=== PATIENT | female | born 1960 | race Hispanic/Latino ===

== ENCOUNTER → 2024-05-14 | Day surgery (SDC) | payer OTHER ==
[2024-05-12 14:05] LABS: HEMATOCRIT 41.2 % (34.2-44.1); HEMOGLOBIN 12.9 g/dL (12.0-16.0)
[2024-05-12 14:32] LABS: ANION GAP 11.7 mmol/L (8-16); CALCIUM 9.7 mg/dL (8.4-10.2); CREATININE, SERUM 0.62 mg/dL (0.57-1.11); POTASSIUM 3.7 mmol/L (3.5-5.1)
[~2024-05-14] MED LIST: ALENDRONATE SOD70 MG PO; ATORVASTATIN CA20 MG PO; CALCIUM ACETAT667 MG PO; DETROL LA4 MG PO; FENTANYL CITRATE/PF 100MCG/2 ML INJ ONE; GLUCOSAMINE1000 MG PO; LIDOCAINE HCL 2% LOCAL INJ 5 ML SDV VIAL INJ ONE; LOSARTAN POTASS25 MG PO; MIDAZOLAM HCL 2 MG/2 ML VIAL ONE; NEOMYCIN/POLYMYXIN/DEX (OPTH) 3.5 GM TUBE ONE; OMEPRAZOLE40 MG PO; ONDANSETRON HCL INJ 2MG/ML 2ML 2 MG/ML VIAL ONE; PROPOFOL IV EMULSION 10 MG/ML 20 ML VIAL ONE
[2024-05-14] MEDS: LACTATED RINGER'S 1,000 ML ONE (06:03)
[2024-05-14] MEDS: GATIFLOXACIN(OPTH) 5 ML LIQD ONE (06:05)
[2024-05-14] MEDS: PHENYLEPHRINE HCL 2 ML DROPS ONE (06:05)
[2024-05-14] MEDS: CYCLOPENTOLATE HCL 2% OPTH SOLN 2 ML BTL OP ONE (06:05)
[2024-05-14] MEDS: TETRACAINE HCL 0.5% OPTH SOLN 4 ML BTL ONE (06:06)
[2024-05-14 08:06] VITALS: TEMP 97
[2024-05-14 08:20] VITALS: BP 138/80; PULSE 50; RESP 15; O2SAT 98
== END | disposition home or self-care (01) ==
LOC: OR 05:22
PROVIDERS: ATTEND Ophthalmology
DX: H25.11 Age-related nuclear cataract, right eye (principal); I10 Essential (primary) hypertension; E78.5 Hyperlipidemia, unspecified; D64.9 Anemia, unspecified; K21.9 Gastro-esophageal reflux disease without esophagitis; I00 Rheumatic fever without heart involvement; Z01.810 Encounter for preprocedural cardiovascular examination; Z01.812 Encounter for preprocedural laboratory examination; Z79.899 Other long term (current) drug therapy
CPT/HCPCS: 36415; 66984; 80048; 85014; 85018; 93005; J2003; J2250; J2405; J2704; J3010; J7121; V2632